=== PATIENT | male | born 1945 | race Caucasian/White ===

== ENCOUNTER 2020-12-29 06:00 | Day surgery (SDC) | payer MEDICARE, BC ==
[2020-12-24 16:43] LABS: BASOPHILS 0.6 % (0-2); EOSINOPHILS 1.9 % (0-7); HEMATOCRIT 53.3 % (42.0-54.0); HEMOGLOBIN 17.9 g/dL (13.5-17.5); IMMATURE GRANULOCYTES 0.3 % (0-5); LYMPHOCYTE ABS# 1.64 10x3/uL (1.32-3.57); LYMPHOCYTES 19.1 % (15-50); MCH 29.1 pg (26.0-34.0); MCHC 33.6 g/dL (31.0-37.0); MCV 86.7 fL (80.0-100.0); MEAN PLATELET VOLUME 11.7 fL (7.4-10.4); MONOCYTES 12.2 % (2-11); NEUTROPHIL ABS# 5.65 10x3/uL (1.78-5.38); NEUTROPHILS 65.9 % (40-80); PLATELET COUNT 182 10x3/uL (130-400); RBC 6.15 10x6/uL (4.20-6.10); RDW 13.6 % (11.5-14.5); WBC 8.6 10x3/uL (4.8-10.8)
[2020-12-24 16:58] LABS: CALC OSMOLALITY 283 mosm/kg (275-300); CALCIUM 9.4 mg/dL (8.5-10.1); CARBON DIOXIDE 28.3 mmol/L (21.0-32.0); CHLORIDE - SERUM 104 mmol/L (98-107); GLUCOSE 149 mg/dL (74-106); POTASSIUM - SERUM 4.2 mmol/L (3.5-5.1); SODIUM 141 mmol/L (136-145); UREA NITROGEN 12 mg/dL (7-18); eGFR NON AFRICAN AMERICAN 78 mL/min (90-120)
[~2020-12-29] VITALS: Ht 182.9 cm; Wt 94.8 kg
--- NOTE | ~2020-12-29 | OP ---
PATIENT NAME: NATACHA VALIENTE MEDICAL RECORD: [id number] LOCATION:[facility] ADMISSION DATE: SURGEON: MAGUE KAN MD DATE OF OPERATION: 12/29/2020 DATE OF SERVICE: 12/29/2020 PREOPERATIVE DIAGNOSES: L4-L5 spinal stenosis on the right with left foraminal stenosis and central canal stenosis. POSTOPERATIVE DIAGNOSES: L4-L5 spinal stenosis on the right with left foraminal stenosis and central canal stenosis. PROCEDURE: Lumbar laminectomy, medial facetectomy and foraminotomy at L4-L5 on the right with left sublaminar decompression. SURGEON: Mague Kan MD DESCRIPTION OF PROCEDURE: After induction of general endotracheal anesthesia, the patient was rolled prone on a Byron frame. Lumbar spine was prepped and draped in usual sterile fashion. Fluoroscopic x-ray and spinal needle localized the L4-L5 interspace on the right side. A stab incision was created with a #11 blade. A series of dilators were used to advance the METRx retractor at the L4-L5 interspace on the right. The level was confirmed with fluoroscopic x-ray. Midas Danny drill and microscope were used to perform a laminectomy, medial facetectomy, and foraminotomy at L4-L5 on the right. The spinous process at L4 was undermined with the Midas Danny drill and ligamentum flavum hypertrophied was removed from the central canal as well as the opposite left foramen. Following this, dura was completely decompressed on both sides. Meticulous hemostasis was maintained throughout the wound. The wound was irrigated with copious amounts of Ancef irrigant solution. The retractor was removed. The fascia was closed with 2-0 Vicryl suture. Subdermal layer was closed with 3-0 Vicryl sutures. Skin was closed with param. Sterile dressing was applied to the wound. The patient was awakened in good condition and taken to recovery. All counts reported as correct. ESTIMATED BLOOD LOSS: Minimal. TRANSINT:[id number] Voice Confirmation ID: [id number] DOCUMENT ID: [id number] MAGUE KAN MD CC: [id number] DICTATION DATE: 01/10/21 0949 [facility] TECHNICIAN: 01/10/21 1158 [facility] [place] 12/29/20 [place] [address]
[~2020-12-29 06:00] MED LIST: BAYER CHEWABLE81 MG PO; CELEBREX200 MG PO; FLOMAX0.4 MG PO; GLIMEPIRIDE2 MG PO; JARDIANCE25 MG PO; NITROQUICK0.4 MG SL; NORVASC10 MG PO; PROPECIA1 MG PO; TESTOSTERONE CYP 200 IM; ULTRAM50 MG PO
[2020-12-29 06:53] VITALS: BP 137/77; Ht 182.9 cm; Wt 94.8 kg
[2020-12-29] MEDS ORDERED: FLUTICASONE PRO16 GM NASAL (07:00)
[2020-12-29] MEDS ORDERED: MEDROL DOSE PACK4 MG PO (12:42)
[2020-12-29] MEDS ORDERED: HYDROCODON-ACE1 EA10 PO (12:42)
--- NOTE | 2020-12-29 12:57 | NUR ---
0028 DR. LANDA ROUNDS WITH FAMILY, GIVES INSTRUCTIONS, RX.
== END 2020-12-29 15:15 | disposition home or self-care (01) ==
LOC: D.OPS 06:00
PROVIDERS: Anesthesiology; ATTEND Neurological Surgery
DX: M48.061 Spinal stenosis, lumbar region without neurogenic claudication (principal); M54.16 Radiculopathy, lumbar region; E11.9 Type 2 diabetes mellitus without complications; I10 Essential (primary) hypertension; I25.10 Atherosclerotic heart disease of native coronary artery without angina pectoris; K21.9 Gastro-esophageal reflux disease without esophagitis; M54.5 Low back pain